=== PATIENT | male | born 1995 | race Caucasian/White ===

== ENCOUNTER 2017-04-10 22:04 | Emergency (ER) | payer OTHER ==
[~2017-04-10] VITALS: Ht 170.2 cm; Wt 68.4 kg
[2017-04-10] MEDS ORDERED: LEVAQUIN750 MG PO (23:48)
[2017-04-10] MEDS ORDERED: CLINDAMYCIN HC300 MG PO (23:48)
[2017-04-11 00:44] VITALS: BP 122/83
== END 2017-04-11 00:44 | disposition home or self-care (01) ==
LOC: EME 22:04
PROC: 3E0234Z Introduction of Serum, Toxoid and Vaccine into Muscle, Percutaneous Approach (ICD-10-PCS; principal; 2017-04-10)
DX: S91.342A Puncture wound with foreign body, left foot, initial encounter (principal); W26.9XXA Contact with unspecified sharp object(s), initial encounter; Z23 Encounter for immunization; F17.200 Nicotine dependence, unspecified, uncomplicated
CPT/HCPCS: 73630; 99281; 99284